=== PATIENT | female | born 1995 | race Caucasian/White ===

== ENCOUNTER 2018-04-25 15:44 | Emergency (ER) | payer MEDICAID, OTHER ==
[~2018-04-25] VITALS: Ht 162.6 cm; Wt 59.0 kg
[2018-04-25 16:21] VITALS: BP 131/87
--- NOTE | 2018-04-25 17:14 | NUR ---
PT TO ER BED 11
[2018-04-25 17:27] LABS: APPEARANCE,URINE HAZY (CLEAR); BILIRUBIN,URINE NEGATIVE (NEGATIVE); BLOOD, URINE NEGATIVE (NEGATIVE); COLOR,URINE YELLOW (YELLOW); LEUKOCYTE ESTERASE ,URINE 2+ (NEGATIVE); NITRITE, URINE NEGATIVE (NEGATIVE); UGLUCOSE NEGATIVE (NEGATIVE)
--- NOTE | 2018-04-25 17:28 | NUR ---
PATIENT PRESENTS TO ED WITH c/o persistant cough and sharp pain to right upper back upon coughing throat pain moreso in the mornings--- DENIES N/V/D; SKIN IS PINK/WARM/DRY; AAOX4 WITH EVEN AND STEADY GAIT; LUNGS CLEAR BL; HR EVEN AND REGULAR; PT DENIES ANY FEVER, OR COUGH AT THIS TIME; PATIENT STATES PAIN OF 6/10 AT THIS TIME; VSS; PATIENT POSITIONED FOR COMFORT; HOB ELEVATED; BEDRAILS UP X2; BED DOWN. ER MD MADE AWARE OF PT STATUS.
[2018-04-25 17:35] LABS: RBC,URINE 0-5 (RARE) /HPF (0-5)
[2018-04-25] MEDS ORDERED: KETOROLAC 30 MG/ML VIAL IM ONE (17:35)
[2018-04-25] MEDS ORDERED: DEXAMETHASONE 10 MG/ML VIAL IM ONE (17:35)
--- NOTE | 2018-04-25 18:08 | NUR ---
MEDICATED WRITTEN; WILL OBSERVE FOR ANY CHANGES REACTION TO MEDS GIVEN X 10- 15MINS PRIOR TO DC
--- NOTE | 2018-04-25 18:09 | NUR ---
Patient discharged with v/s stable. Written and verbal after care instructions given and explained. Patient alert, oriented and verbalized understanding of instructions. Ambulatory with steady gait. All questions addressed prior to discharge. ID band removed. Patient advised to follow up with PMD. Rx of NITROFURANTOIN/ MEDROL/ PROMETHAZINE/ALBUTEROL given. Patient educated on indication of medication including possible reaction and side effects. Opportunity to ask questions provided and answered.
[2018-04-25 18:14] VITALS: BP 112/63
== END 2018-04-25 18:18 | disposition home or self-care (01) ==
LOC: MED 15:44
DX: M94.0 Chondrocostal junction syndrome [Tietze] (principal); J40 Bronchitis, not specified as acute or chronic; N39.0 Urinary tract infection, site not specified
CPT/HCPCS: 81001; 81025; 87086; 96372; 99283; J1100; J1885

== ENCOUNTER 2018-06-07 18:33 | Emergency (ER) | payer MEDICAID, OTHER ==
[~2018-06-07] VITALS: Ht 162.6 cm; Wt 56.2 kg
[2018-06-07 18:44] VITALS: BP 154/94
--- NOTE | 2018-06-07 18:46 | NUR ---
PT PROVIDED WITH UA CUP. PT SENT TO LOBBY TO WAIT FOR AVAILABLE BED.
--- NOTE | 2018-06-07 19:42 | NUR ---
PT AMBULATED TO BED 01.
[2018-06-07 19:54] LABS: BASOPHILS # (AUTO) 0.1 K/uL (0.00-0.22); BASOPHILS % (AUTO) 0.9 % (0.0-2.0); EOSINOPHILS % (AUTO) 0.6 % (0.0-4.0); HEMATOCRIT 41.2 % (36-48); HEMOGLOBIN 13.3 g/dL (12.0-16.0); LYMPHOCYTES # (AUTO) 2.9 K/uL (2.5-16.5); LYMPHOCYTES % (AUTO) 32.3 % (20.5-51.1); MEAN CORPUSCULAR HEMOGLOBIN 27 pg (27-31); MEAN CORPUSCULAR HGB CONC 32 g/dL (33-37); MEAN CORPUSCULAR VOLUME 84.4 fL (80-94); MONOCYTES # (AUTO) 0.6 K/uL (0.8-1.0); MONOCYTES % (AUTO) 7.3 % (1.7-9.3); NEUTROPHILS # (AUTO) 5.2 K/uL (1.8-7.7); NEUTROPHILS % (AUTO) 58.9 % (42.2-75.2); PLATELET COUNT (AUTO) 362 K/uL (140-450); RED BLOOD CELL COUNT(AUTO) 4.88 MIL/uL (4.20-5.40); RED CELL DISTRIBUTION WIDTH 17.1 % (11.6-13.7); WHITE BLOOD COUNT (AUTO) 8.8 K/uL (4.8-10.8)
[2018-06-07] MEDS ORDERED: ONDANSETRON 4 MG ODT PO ONE ×2 (20:00→20:20)
[2018-06-07 20:08] LABS: ANION GAP 13.6 (8-16); CARBON DIOXIDE 25.3 mmol/L (21-32); CREATININE 0.9 mg/dL (0.6-1.3); POTASSIUM 3.9 mmol/L (3.5-5.1)
[2018-06-07 20:14] LABS: ALBUMIN 4.3 g/dL (3.4-5.0); TOTAL BILIRUBIN 0.3 mg/dL (0.0-1.0)
--- NOTE | 2018-06-07 20:17 | NUR ---
22/F PT CO NAUSEA 3DAYS. REPORTS EPISODES OF DIZZINESS. NO ASSOCIATED NVD. ABD SOFT NONTENDER. AOX4. ABLE TO VERBALIZE NEEDS. AFEBRILE. EVEN UNLABORED BREATHING. BED IN LOWEST POSITION. SIDERAILS UP X4. WILL CONTINUE TO MONITOR.
[2018-06-07 20:18] LABS: APPEARANCE,URINE CLEAR (CLEAR); BILIRUBIN,URINE NEGATIVE (NEGATIVE); BLOOD, URINE NEGATIVE (NEGATIVE); COLOR,URINE YELLOW (YELLOW); LEUKOCYTE ESTERASE ,URINE TRACE (NEGATIVE); NITRITE, URINE NEGATIVE (NEGATIVE); UGLUCOSE NEGATIVE (NEGATIVE)
[2018-06-07 20:41] LABS: RBC,URINE 0-5 /HPF (0-5)
[2018-06-07 20:45] VITALS: BP 133/78
--- NOTE | 2018-06-07 20:45 | NUR ---
Patient discharged with v/s stable. Written and verbal after care instructions given and explained. Patient alert, oriented and verbalized understanding of instructions. Ambulatory with steady gait. All questions addressed prior to discharge. ID band removed. Patient advised to follow up with PMD. Rx of ZOFRAN AND KEFLEX given. Patient educated on indication of medication including possible reaction and side effects. Opportunity to ask questions provided and answered.
== END 2018-06-07 20:45 | disposition home or self-care (01) ==
LOC: MED 18:33
DX: A08.4 Viral intestinal infection, unspecified (principal); N39.0 Urinary tract infection, site not specified
CPT/HCPCS: 36415; 80053; 81001; 81025; 85025; 87086; 99283; Q0162